=== PATIENT | male | born 1985 | race African-American/Black ===

== ENCOUNTER 2018-10-01 20:00 | Emergency (ER) | payer OTHER ==
--- NOTE | 2018-10-01 21:05 | RADIOLOGY REPORT (SQ) ---
EXAM DESCRIPTION: Right hand Views: 3 CLINICAL HISTORY: 32 years Male, injury COMPARISON: None. FINDINGS: An acute fracture extending across the distal metaphyseal region of the 5th metacarpal, with 30 degree anterior angulation. Fracture does not extend into the articular surface. There is slight impaction of the shaft into the metaphysis. No hyperdense foreign bodies. No additional fractures. IMPRESSION: 1. Acute 5th metacarpal fracture
[2018-10-01] MEDS ORDERED: ACETAMINOPHEN 325 MG TABLET PO ONE (22:16)
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
[2018-10-01 22:51] VITALS: BP 138/98
== END 2018-10-01 22:51 | disposition home or self-care (01) ==
LOC: ER 20:00
DX: S62.339A Displaced fracture of neck of unspecified metacarpal bone, initial encounter for closed fracture (principal); F17.200 Nicotine dependence, unspecified, uncomplicated; W51.XXXA Accidental striking against or bumped into by another person, initial encounter; B20 Human immunodeficiency virus [HIV] disease; E10.9 Type 1 diabetes mellitus without complications; Z79.4 Long term (current) use of insulin; Z88.0 Allergy status to penicillin
CPT/HCPCS: 99283